=== PATIENT | female | born 1990 | race Caucasian/White ===

== ENCOUNTER 2018-04-19 18:33 | Emergency (ER) | payer MEDICAID ==
[~2018-04-19] VITALS: Ht 165.1 cm; Wt 72.6 kg
[2018-04-19 18:40] VITALS: BP 186/106
--- NOTE | 2018-04-19 18:49 | NUR ---
PATIENT TAKEN TO BED# 4 BY BALANCER
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
--- NOTE | 2018-04-19 19:06 | NUR ---
ASSUMED CARE OF PT FROM DONTAE JO[facility]
[2018-04-19 19:20] LABS: BASOPHILS # (AUTO) 0.1 K/uL (0.00-0.22); BASOPHILS % (AUTO) 0.7 % (0.0-2.0); EOSINOPHILS # (AUTO) 0.2 K/uL (0-0.4); EOSINOPHILS % (AUTO) 2.2 % (0.0-4.0); HEMATOCRIT 40.9 % (36-48); HEMOGLOBIN 13.5 g/dL (12.0-16.0); LYMPHOCYTES # (AUTO) 1.9 K/uL (2.5-16.5); LYMPHOCYTES % (AUTO) 24.5 % (20.5-51.1); MEAN CORPUSCULAR HEMOGLOBIN 30 pg (27-31); MEAN CORPUSCULAR HGB CONC 33 g/dL (33-37); MEAN CORPUSCULAR VOLUME 91.2 fL (80-94); MONOCYTES # (AUTO) 0.4 K/uL (0.8-1.0); MONOCYTES % (AUTO) 4.6 % (1.7-9.3); NEUTROPHILS # (AUTO) 5.3 K/uL (1.8-7.7); PLATELET COUNT (AUTO) 260 K/uL (140-450); RED BLOOD CELL COUNT(AUTO) 4.48 MIL/uL (4.20-5.40); RED CELL DISTRIBUTION WIDTH 12.6 % (11.6-13.7); WHITE BLOOD COUNT (AUTO) 7.8 K/uL (4.8-10.8)
[2018-04-19 19:29] LABS: ANION GAP 10.2 (8-16); CREATININE 1.3 mg/dL (0.6-1.3); POTASSIUM 4.2 mmol/L (3.5-5.1)
[2018-04-19 19:34] LABS: PROTHROMBIN TIME 8.8 secs (10.8-13.4)
[2018-04-19] MEDS ORDERED: ONDANSETRON 4 MG/2 ML VIAL IVP ONE (20:45)
[2018-04-19] MEDS ORDERED: INSULIN REGULAR, HUMAN 100 UNIT/ML VIAL SUBQ ONE (20:45)
[2018-04-19] MEDS ORDERED: MORPHINE SULFATE 4 MG/ML SYR IVP ONE (20:45)
--- NOTE | 2018-04-19 21:01 | NUR ---
XRAY AT BEDSIDE.
[2018-04-19] MEDS ORDERED: METOCLOPRAMIDE 10 MG/2 ML INJ VIAL IVP ONE (21:15)
[2018-04-19 21:59] VITALS: BP 178/98
--- NOTE | 2018-04-19 21:59 | NUR ---
Patient discharged with v/s stable. Written and verbal after care instructions given and explained. Patient alert, oriented and verbalized understanding of instructions. Ambulatory with steady gait. All questions addressed prior to discharge. ID band removed. Patient advised to follow up with PMD. Rx of IBUPROFEN, ZOFRAN given. Patient educated on indication of medication including possible reaction and side effects. Opportunity to ask questions provided and answered.
== END 2018-04-19 21:59 | disposition home or self-care (01) ==
LOC: MED 18:33
DX: S80.211A Abrasion, right knee, initial encounter (principal); S09.90XA Unspecified injury of head, initial encounter; F07.81 Postconcussional syndrome; E11.65 Type 2 diabetes mellitus with hyperglycemia; F10.10 Alcohol abuse, uncomplicated; Z88.1 Allergy status to other antibiotic agents; Z88.8 Allergy status to other drugs, medicaments and biological substances; V89.2XXA Person injured in unspecified motor-vehicle accident, traffic, initial encounter; Y93.89 Activity, other specified; Y92.89 Other specified places as the place of occurrence of the external cause; Y99.8 Other external cause status
CPT/HCPCS: 36415; 70450; 71101; 73562; 80048; 84703; 85025; 85610; 96372; 96374; 96375; 99284; J1815; J2270; J2405; J2765; Q0092

== ENCOUNTER 2018-07-31 18:51 | Emergency (ER) | payer MEDICAID ==
[~2018-07-31] VITALS: Ht 154.9 cm; Wt 70.3 kg
--- NOTE | 2018-07-31 19:20 | NUR ---
TO LOBBY A/W BED, AMBULATORY
[2018-07-31 19:21] VITALS: BP 160/80
--- NOTE | 2018-07-31 21:55 | NUR ---
PT BIB SELF C/O MEDICATION REFILL. PT STATES SHE IS A DIABETIC AND HAS BEEN OUT OF HER MEDICATION X2 WEEKS, STATES SHE STARTED FEELING WARM AND GITTERY AT HOME TODAY. PT STATES 0/10 PAIN AT THIS TIME. PT ACTING APPROPRIATLY, SPEAKING IN CLEAR AND COMPLETE SENTENCES. BREATHING EQUAL AND UNLABORED. SKIN WARM, DRY AND INTACT. PT IN GOWN, SAFETY PRECAUTIONS IN PLACE. PMH: DIABETICS
[2018-07-31 23:39] LABS: BASOPHILS % (AUTO) 0.5 % (0.0-2.0); EOSINOPHILS # (AUTO) 0.1 K/uL (0-0.4); EOSINOPHILS % (AUTO) 1.6 % (0.0-4.0); HEMATOCRIT 40.6 % (36-48); LYMPHOCYTES % (AUTO) 23.1 % (20.5-51.1); MEAN CORPUSCULAR HEMOGLOBIN 30 pg (27-31); MEAN CORPUSCULAR HGB CONC 34 g/dL (33-37); MEAN CORPUSCULAR VOLUME 88.1 fL (80-94); MONOCYTES # (AUTO) 0.4 K/uL (0.8-1.0); MONOCYTES % (AUTO) 4.8 % (1.7-9.3); NEUTROPHILS # (AUTO) 6.1 K/uL (1.8-7.7); PLATELET COUNT (AUTO) 305 K/uL (140-450); RED BLOOD CELL COUNT(AUTO) 4.61 MIL/uL (4.20-5.40); RED CELL DISTRIBUTION WIDTH 12.9 % (11.6-13.7); WHITE BLOOD COUNT (AUTO) 8.8 K/uL (4.8-10.8)
[2018-07-31 23:49] LABS: ACETONE, SERUM NEGATIVE (NEGATIVE)
[2018-07-31 23:50] LABS: CARBON DIOXIDE 26.9 mmol/L (21-32); CHLORIDE 99 mmol/L (98-107); CREATININE 1.1 mg/dL (0.6-1.3); GFR ARICAN-AMERICAN 76 mL/min (>90); GLUCOSE 396 mg/dL (74-106); POTASSIUM 3.9 mmol/L (3.5-5.1); SODIUM SERUM 134 mmol/L (136-145); UREA NITROGEN, BLOOD 14 mg/dL (7-18)
[2018-07-31 23:57] LABS: ALBUMIN 2.4 g/dL (3.4-5.0); ASPARTATE AMINOTRANSFERASE 25 U/L (15-37); TOTAL BILIRUBIN 0.3 mg/dL (0.0-1.0)
[2018-08-01 00:47] LABS: APPEARANCE,URINE CLEAR (CLEAR); BILIRUBIN,URINE NEGATIVE (NEGATIVE); BLOOD, URINE 1+ (NEGATIVE); COLOR,URINE YELLOW (YELLOW); LEUKOCYTE ESTERASE ,URINE NEGATIVE (NEGATIVE); NITRITE, URINE NEGATIVE (NEGATIVE); UGLUCOSE 3+ (NEGATIVE)
[2018-08-01 01:02] LABS: WBC,URINE 20-60 /HPF (0-5)
[2018-08-01] MEDS ORDERED: INSULIN REGULAR, HUMAN 100 UNIT/ML VIAL SUBQ ONE (02:10)
--- NOTE | 2018-08-01 02:11 | NUR ---
PT ACTING APPROPRIATLY, SPEAKING IN CLEAR AND COMPLETE SENTENCES. PT STATES 0/10 PAIN AT THIS TIME.
--- NOTE | 2018-08-01 03:39 | NUR ---
PT AWARE OF 392 BS AT THIS TIME, PT IS REQUESTING TO GO HOME AT THIS TIME. PT STATES "I NEED TO GO HOME RIGHT NOW, I ACTUALLY FEEL MUCH BETTER THEN WHEN I CAME HERE". PT ACTING APPROPRIATLY. SUELLEN GALLARDO AWARE.
--- NOTE | 2018-08-01 03:55 | NUR ---
Patient discharged with v/s stable. Patient acting approriatly, states 0/10 pain. Patient states she is ready to go home. Written and verbal after care instructions given and explained. Patient alert, oriented and verbalized understanding of instructions. Ambulatory with steady gait. All questions addressed prior to discharge. ID band removed. Patient advised to follow up with PMD. Rx of Keflex, Humulin R, and Humulin N given. Patient educated on indication of medication including possible reaction and side effects. Opportunity to ask questions provided and answered.
[2018-08-01 04:16] VITALS: BP 142/92
== END 2018-08-01 03:55 | disposition home or self-care (01) ==
LOC: MED 18:51
DX: E11.9 Type 2 diabetes mellitus without complications (principal); N39.0 Urinary tract infection, site not specified; Z88.1 Allergy status to other antibiotic agents; Z88.6 Allergy status to analgesic agent; Z79.4 Long term (current) use of insulin
CPT/HCPCS: 36415; 36600; 80053; 81001; 81025; 82009; 82803; 85025; 87086; 96372; 99283; J1815; 81002

== ENCOUNTER 2020-07-05 14:46 | Emergency (ER) | payer MEDICAID ==
[~2020-07-05] VITALS: Ht 154.9 cm; Wt 74.8 kg
[2020-07-05 14:49] VITALS: BP 171/86
--- NOTE | 2020-07-05 14:56 | NUR ---
Patient to restroom for urine sample collection.
--- NOTE | 2020-07-05 14:56 | NUR ---
Patient ambulated to bed 01 with steady/even gait.
--- NOTE | 2020-07-05 15:05 | NUR ---
30 y/o F coming in from home with c/c upper abdominal pain x 3 days. Patient states abdominal pain 10/10, sharp/constant, radiating to lower back. Patient states associated N/V x 6 episodes of foam/"acid"/yellow emesis & constipation x 3 days. Pt denies dizziness, headache, SOB, chest pain, urinary symptoms. Patient states she took Tylenol 500mg with no relief. Pt is a dialysis patient; //Friday; last treatment completed fully yesterday. Dialysis catheter noted to right shoulder. Bowel sounds hypoactive x 4 quadrants. senior android developer in place. Bed locked in lowest position, side rails x 1, call light in reach. PMH: DIALYSIS Friday AND FRIDAY, DM, HTN Allergies: MOTRIN ( KIDNEY) , TORADOL, VANCO Meds: LABETALOL, AMPLODIPINE, CLONIDINE, INSULIN (70/30)
--- NOTE | 2020-07-05 15:33 | NUR ---
Dr. Padilla is evaluating patient at bedside.
--- NOTE | 2020-07-05 15:35 | NUR ---
Gabriela bernstein in [facility] - 07/05/20 at 1658 by CYRUS Patient assisted to CT via wheelchair by infectious waste technician.
--- NOTE | 2020-07-05 15:45 | NUR ---
Patient resting on left side in position of comfort. process controls technician remains in place. Respirations even/unlabored. Bed locked in lowest position, side rails x 1, call light in reach.
[2020-07-05] MEDS ORDERED: NACL 0.9% 1,000 ML IV ONE (15:50)
[2020-07-05] MEDS ORDERED: ONDANSETRON 4 MG/2 ML VIAL IVP ONE ×2 (15:50→17:45)
[2020-07-05] MEDS ORDERED: MORPHINE SULFATE 4 MG/ML SYR IVP ONE ×2 (15:50→17:45)
--- NOTE | 2020-07-05 15:52 | NUR ---
Urine sample collected, walked to lab and handed to nola Mathews tech.
--- NOTE | 2020-07-05 15:52 | NUR ---
Blood sample collected with cultures, handed to nola Garcia tech at ER bedside.
[2020-07-05 16:16] LABS: BASOPHILS % (AUTO) 0.3 % (0.0-2.0); EOSINOPHILS # (AUTO) 0.4 K/uL (0-0.4); EOSINOPHILS % (AUTO) 4.2 % (0.0-4.0); HEMOGLOBIN 9.8 g/dL (12.0-16.0); LYMPHOCYTES # (AUTO) 0.9 K/uL (2.5-16.5); LYMPHOCYTES % (AUTO) 9.9 % (20.5-51.1); MEAN CORPUSCULAR HEMOGLOBIN 29 pg (27-31); MEAN CORPUSCULAR HGB CONC 33 g/dL (33-37); MEAN CORPUSCULAR VOLUME 89.6 fL (80-94); MONOCYTES # (AUTO) 0.7 K/uL (0.8-1.0); MONOCYTES % (AUTO) 7.5 % (1.7-9.3); NEUTROPHILS # (AUTO) 6.8 K/uL (1.8-7.7); NEUTROPHILS % (AUTO) 78.1 % (42.2-75.2); PLATELET COUNT (AUTO) 223 K/uL (140-450); RED BLOOD CELL COUNT(AUTO) 3.34 MIL/uL (4.20-5.40); RED CELL DISTRIBUTION WIDTH 20.7 % (11.6-13.7); WHITE BLOOD COUNT (AUTO) 8.7 K/uL (4.8-10.8)
--- NOTE | 2020-07-05 16:35 | NUR ---
Patient assisted to CT via wheelchair by body and frame technician.
--- NOTE | 2020-07-05 16:45 | NUR ---
Patient resting on left side in position of comfort. cafeteria monitor remains in place. Respirations even/unlabored. Bed locked in lowest position, side rails x 1, call light in reach.
--- NOTE | 2020-07-05 16:50 | NUR ---
Patient returned from CT and placed back onto whanau support worker. Bed locked in lowest position, side rails x 1, call light in reach.
[2020-07-05 17:05] LABS: ANION GAP 10.6 (8-16); CARBON DIOXIDE 31.2 mmol/L (21-32); POTASSIUM 3.8 mmol/L (3.5-5.1); TOTAL BILIRUBIN 0.7 mg/dL (0.0-1.0)
[2020-07-05 17:22] LABS: CREATININE 8.9 mg/dL (0.6-1.3)
[2020-07-05 17:32] LABS: APPEARANCE,URINE CLEAR (CLEAR); BILIRUBIN,URINE NEGATIVE (NEGATIVE); BLOOD, URINE 1+ (NEGATIVE); COLOR,URINE YELLOW (YELLOW); LEUKOCYTE ESTERASE ,URINE NEGATIVE (NEGATIVE); NITRITE, URINE NEGATIVE (NEGATIVE); PH,URINE 8.5 (5.0-9.0); UGLUCOSE 2+ (NEGATIVE)
[2020-07-05 17:40] LABS: WBC,URINE 0-5 /HPF (0-5)
--- NOTE | 2020-07-05 17:40 | NUR ---
Patient states nausea & requesting medication; Dr. Padilla made aware and orders placed.
[2020-07-05] MEDS ORDERED: ONDANSETRON 4 MG/2 ML VIAL ONE (17:41)
--- NOTE | 2020-07-05 17:45 | NUR ---
Dr. Padilla made aware of patient's blood pressure; new orders placed.
[2020-07-05] MEDS ORDERED: LABETALOL 100 MG/20 ML VIAL IVP ONE (17:50)
--- NOTE | 2020-07-05 17:50 | NUR ---
Patient resting on left side in position of comfort. art framing manager remains in place. Respirations even/unlabored. Bed locked in lowest position, side rails x 1, call light in reach.
--- NOTE | 2020-07-05 18:00 | NUR ---
Patient BP 156/59 after Labetalol 20mg IVP. Patient denies any pain or nausea at this time.
[2020-07-05] MEDS ORDERED: ACET-8386 PO (18:02)
[2020-07-05] MEDS ORDERED: ONDA-24 SL (18:02)
[2020-07-05 18:13] VITALS: BP 156/79
--- NOTE | 2020-07-05 18:13 | NUR ---
Patient discharged with v/s stable. Written and verbal after care instructions given and explained. Patient alert, oriented and verbalized understanding of instructions. Ambulatory with steady gait. All questions addressed prior to discharge. ID band removed. Patient advised to follow up with PMD. Rx of Hydrocodone/Acetaminophen, Ondansetron given. Patient educated on indication of medication including possible reaction and side effects. Opportunity to ask questions provided and answered.
--- NOTE | 2020-07-05 18:14 | NUR ---
Patient resting on left side in position of comfort. alarm security or surveillance monitor remains in place. Respirations even/unlabored. Bed locked in lowest position, side rails x 1, call light in reach.
== END 2020-07-05 18:13 | disposition home or self-care (01) ==
LOC: MED 14:46
DX: R10.13 Epigastric pain (principal); R11.2 Nausea with vomiting, unspecified; E11.22 Type 2 diabetes mellitus with diabetic chronic kidney disease; I12.0 Hypertensive chronic kidney disease with stage 5 chronic kidney disease or end stage renal disease; N18.6 End stage renal disease; Z99.2 Dependence on renal dialysis; Z88.8 Allergy status to other drugs, medicaments and biological substances; Z79.899 Other long term (current) drug therapy
CPT/HCPCS: 36415; 74176; 80053; 81001; 81025; 83690; 85025; 96361; 96374; 96375; 96376; 99284; J2270; J2405; J3490; J7030

== ENCOUNTER 2020-07-07 19:54 | Emergency (ER) | payer MEDICAID ==
[~2020-07-07] VITALS: Ht 154.9 cm; Wt 75.3 kg
[~2020-07-07 19:54] MED LIST: ACET-8386 PO; ONDA-24 SL
[2020-07-07 20:05] VITALS: BP 200/114
--- NOTE | 2020-07-07 20:13 | NUR ---
PT AMBULATED TO BED 08
--- NOTE | 2020-07-07 20:18 | NUR ---
PATIENT BIB SELF FOR C/O 12/24 ABDOMINAL PAIN X 1 WEEK. PATIENT STATES "THE PAIN COMES AND GOES, I TOOK TYLENOL BUT IT DIDNT HELP." PATIENT STATES THE PAIN RADIATES TO THE LEFT FLANK. PATIENT REPORTS N/V X 3 TODAY. PER PATIENT "I WAS HERE 2 DAYS AGO BUT IT DIDNT GET BETTER SO I CAME BACK." BOWEL SOUNDS ACTIVE X 4. ABDOMEN ROUND, SOFT AND TENDER TO LLQ. PATEINT DENIES SOB, CP, FEVER, CHILLS. SEE COMPLETE ASSESSMENT FOR FURTHER DETAILS. MED HX: DM, HTN ALLERGIES: VANCO, TORADOL
--- NOTE | 2020-07-07 20:34 | NUR ---
ERMD AT BEDSIDE EVLAUATING PATIENT.
[2020-07-07] MEDS ORDERED: MORPHINE SULFATE 4 MG/ML SYR IVP ONE (20:45)
[2020-07-07] MEDS ORDERED: ONDANSETRON 4 MG/2 ML VIAL IVP ONE (20:45)
[2020-07-07] MEDS: MORPHINE SULFATE 4 MG/ML SYR IVP ONE (21:00)
--- NOTE | 2020-07-07 21:00 | NUR ---
Note amandeep in ED - 07/07/20 at 2114 by [email or web address] IV PLACED IN R AC, BLOOD RETURN NOTED. BLOOD LABS COLLECTED AND GIVEN TO HEIKE ROADS AND PARKING LOTS SWEEPER OPERATOR.
--- NOTE | 2020-07-07 21:00 | NUR ---
IV PLACED IN R AC, BLOOD RETURN NOTED. BLOOD LABS COLLECTED AND GIVEN TO HEIKE CD STORAGE AND MATERIALS MAKE UP HELPER.
[2020-07-07] MEDS: ONDANSETRON 4 MG/2 ML VIAL IVP ONE (21:04)
[2020-07-07 21:12] LABS: BASOPHILS # (AUTO) 0.1 K/uL (0.00-0.22); BASOPHILS % (AUTO) 0.7 % (0.0-2.0); EOSINOPHILS # (AUTO) 0.3 K/uL (0-0.4); EOSINOPHILS % (AUTO) 4.2 % (0.0-4.0); HEMATOCRIT 30.5 % (36-48); HEMOGLOBIN 9.9 g/dL (12.0-16.0); LYMPHOCYTES # (AUTO) 0.9 K/uL (2.5-16.5); LYMPHOCYTES % (AUTO) 11.1 % (20.5-51.1); MEAN CORPUSCULAR HEMOGLOBIN 29 pg (27-31); MEAN CORPUSCULAR HGB CONC 33 g/dL (33-37); MEAN CORPUSCULAR VOLUME 87.9 fL (80-94); MONOCYTES # (AUTO) 0.7 K/uL (0.8-1.0); MONOCYTES % (AUTO) 8.4 % (1.7-9.3); NEUTROPHILS # (AUTO) 6.1 K/uL (1.8-7.7); NEUTROPHILS % (AUTO) 75.6 % (42.2-75.2); PLATELET COUNT (AUTO) 224 K/uL (140-450); RED BLOOD CELL COUNT(AUTO) 3.47 MIL/uL (4.20-5.40); RED CELL DISTRIBUTION WIDTH 20.2 % (11.6-13.7)
[2020-07-07 21:24] LABS: ALBUMIN 2.9 g/dL (3.4-5.0); TOTAL BILIRUBIN 0.7 mg/dL (0.0-1.0)
[2020-07-07 21:25] LABS: CREATININE 9.8 mg/dL (0.6-1.3)
--- NOTE | 2020-07-07 21:25 | NUR ---
CRITICAL LAB VALUES RECIEVED FROM AUBREY WHEAT BUYER. CREATININE 9.8 AND BUN 22. ERMD MADE AWARE. NO NEW ORDERS AT THIS TIME.
--- NOTE | 2020-07-07 22:00 | NUR ---
PATIENT STATED "I HAVE DIALYSIS AND I CANT GIVE ANY URINE RIGHT NOW." ERMD MADE AWARE. ORDERS TO DISCONTINUE UA ORDER.
[2020-07-07] MEDS ORDERED: HYDROcodone/APAP 5/325 MG 1 TAB TAB PO ONE (22:15)
--- NOTE | 2020-07-07 22:17 | NUR ---
PATIENT REPORTING UNRESOLVED PAIN. ERMD MADE AWARE. NEW ORDERS PLACED.
[2020-07-07] MEDS ORDERED: ACETAMINOPHEN 650 MG/20.3 ML UDC PO ONE (22:20)
[2020-07-07 22:56] VITALS: BP 156/114
--- NOTE | 2020-07-07 22:56 | NUR ---
Patient discharged with v/s stable. Written and verbal after care instructions given and explained. Patient verbalized understanding. Ambulatory with steady gait. All questions addressed prior to discharge. Advised to follow up with PMD.
== END 2020-07-07 22:56 | disposition home or self-care (01) ==
LOC: MED 19:54
DX: R10.9 Unspecified abdominal pain (principal); R11.2 Nausea with vomiting, unspecified; E11.22 Type 2 diabetes mellitus with diabetic chronic kidney disease; I12.0 Hypertensive chronic kidney disease with stage 5 chronic kidney disease or end stage renal disease; N18.6 End stage renal disease; Z79.899 Other long term (current) drug therapy
CPT/HCPCS: 36415; 80053; 83690; 84702; 85025; 96374; 96375; 99284; J2270; J2405